=== PATIENT | female | born 1995 | race Caucasian/White ===

== ENCOUNTER 2018-07-15 13:39 | Outpatient (CLI) | payer BC ==
[~2018-07-15] VITALS: Ht 165.1 cm; Wt 59.9 kg
[2018-07-15 16:11] VITALS: BP 114/70
[2018-07-15] MEDS ORDERED: OMEPRAZOLE40 M1 ORAL (16:11)
[2018-07-15] MEDS ORDERED: RANITIDINE HCL150 MG ORAL (16:11)
--- NOTE | 2018-07-15 17:45 | Consultation ---
DATE OF CONSULTATION: 07/15/2018 CHIEF COMPLAINT: Chronic GERD. HISTORY OF PRESENT ILLNESS: This is a 22-year-old female with past medical history of chronic GERD for many years. She has been trying omeprazole twice a day with Zantac with no response. She is having heartburn. She is having actually coffee-grounds emesis. She wakes up in the morning with nausea and sometimes even vomits, never had an endoscopy so was referred to us for endoscopy . PAST MEDICAL HISTORY: 1. GERD. 2. Hyperparathyroidism. 3. Hemorrhoids. PAST SURGICAL HISTORY: None. MEDICATIONS: Zantac and omeprazole. FAMILY HISTORY: No family history of GI malignancies. SOCIAL HISTORY: Drinks only socially. No intravenous drug abuse. No tobacco abuse. No marijuana abuse. ALLERGIES: No known drug allergies. PHYSICAL EXAMINATION: GENERAL: No acute distress. VITAL SIGNS: Temperature 97.8, blood pressure 114/70, pulse , respiratory rate 20. HEENT: Normocephalic and atraumatic. Sclerae anicteric. NECK: Supple. No evidence of lymphadenopathy. CARDIOVASCULAR: Regular rate and rhythm. Plus S1 and S2. No obvious murmur. LUNGS: Clear to auscultation bilaterally. ABDOMEN: Soft and nontender. Positive bowel sounds. No rebound. No guarding. No peritoneal sign. EXTREMITIES: No cyanosis. No clubbing. No edema. ASSESSMENT: This is a 22-year-old female with chronic GERD, not responding to PPI and Zantac twice a day. PLAN: To do an endoscopy, rule out hiatal hernia, rule out esophagitis. Meanwhile, the patient was given a combination of the PPI plus baclofen and we are going to try to get authorization from insurance for the endoscopy. I want to thank Dr. Samuel for this kind referral. Tu Staples M.D. DR: Erin JOB#: [id number] CC: Shadia Samuel M.D.; Fax#: [phone]
== END 2018-07-15 15:39 | disposition home or self-care (01) ==
LOC: PAN 13:39
DX: K21.9 Gastro-esophageal reflux disease without esophagitis (principal); R11.10 Vomiting, unspecified; E21.3 Hyperparathyroidism, unspecified
CPT/HCPCS: 99202

== ENCOUNTER 2018-08-06 10:17 | Day surgery (SDC) | payer BC ==
[~2018-08-06] VITALS: Ht 165.1 cm; Wt 59.0 kg
[2018-08-06] VITALS (9 sets, daily range): BP systolic 107–121; BP diastolic 60–72
[~2018-08-06 10:17] MED LIST: OMEPRAZOLE40 M1 ORAL; RANITIDINE HCL150 MG ORAL
[2018-08-06] MEDS ORDERED: NORGESTIMATE-E1 EAC1 PO (11:13)
[2018-08-06] MEDS ORDERED: BACLOFEN10 MG ORAL (11:13)
[2018-08-06] MEDS ORDERED: LR 1000ml ONE (12:00)
[2018-08-06] MEDS ORDERED: Propofol 200mg/20ml IV ONE (12:00)
[2018-08-06] MEDS ORDERED: Lidocaine 1% MPF 10mg/ml 5ml ONE (12:00)
[2018-08-06] MEDS ORDERED: fentaNYL 100 mcg/2 mL IV ONE (12:02)
--- NOTE | 2018-08-06 12:20 | Pre-Procedure Note/Attestation ---
Pre-Procedure Note/Attestation Complete Prior to Procedure Planned Procedure: not applicable Procedure Narrative: egd Indications for Procedure Pre-Operative Diagnosis: gerd Attestation I attest that I discussed the nature of the procedure; its benefits; risks and complications; and alternatives (and the risks and benefits of such alternatives ), prior to the procedure, with the patient (or the patient's legal correspondence representative). I attest that, if there was a reasonable possibility of needing a blood transfusion, the patient (or the patient's legal correspondence representative) was given the [facility] standardized written summary, pursuant to the [place] Blood Safety Act ([place] Health and Safety Code # 1645, as amended). I attest that I re-evaluated the patient just prior to the surgery and that there has been no change in the patient's H&P, except as documented below: Tu Staples MD August 06, 2018 12:20
--- NOTE | 2018-08-06 12:21 | Short Stay Surgery H&P ---
History of Present Illness History of Present Illness Chief Complaint gerd HPI Deanne Floyd is a 22 year old female who was admitted on for GERD Patient History Allergies: Coded Allergies: No Known Allergies (Unverified , 08/05/18) PAST MEDICAL HISTORY: (1) GERD (gastroesophageal reflux disease) Medication History Scheduled Baclofen* (Baclofen*), 10 MG ORAL BEDTIME, (Reported) Norgestimate-Ethinyl Estradiol (Norgestimate-Ethinyl Estradiol), 1 EACH PO DA, ( Reported) Omeprazole (Omeprazole), 40 MG ORAL DAILY, (Reported) Review of Systems Cardiovascular: Reports: no symptoms Respiratory: Reports: no symptoms Skeletal: Reports: no symptoms Gastrointestinal: Reports: see HPI Genitourinary: Reports: no symptoms Neurologic: Reports: no symptoms Endocrine: Reports: no symptoms Hematologic: Reports: no symptoms Physical Exam Vital Signs Last Vital Signs Date Time Temp Pulse Resp B/P (MAP) Pulse Ox O2 Delivery O2 Flow Rate FiO2 08/06/18 11:09 98.5 52 20 121/72 100 Room Air Labs Laboratory Tests Test 08/06/18 11:35 Human Chorionic Gonadotropin, Qual Negative (NEGATIVE) Skin: normal HENT: normal Heart: normal Lungs: normal Abdomen: normal Extremities: normal Plan Plan of Care egd Attestation Are the patient's medical conditions optimized for surgery? Attestation Response: yes Tu Staples MD August 06, 2018 12:21
--- NOTE | 2018-08-06 12:34 | Endoscopy Procedure Note ---
Endoscopy Procedure Note General Indication for Procedure: gerd Procedures Performed: EGD Operative Findings/Diagnosis: gastritis Specimen: yes Pt Tolerated Procedure Well: Yes Estimated Blood Loss: none Anesthesia Anesthesiologist: mohan Anesthesia: MAC Inserted Devices Implant(s) used?: No GI Core Measures 50 yrs or older w/o bx or poly: Not Applicable 10yrs. F/U recommended: Not Applicable Tu Staples MD August 06, 2018 12:34
[2018-08-06] MEDS ORDERED: Metoclopramide 10mg/2ml Inj IVP PRN (12:45)
--- NOTE | 2018-08-06 12:45 | Anethesia Preoperative Eval ---
Anesthesia Pre-op PMH/ROS General Date of Evaluation: August 06, 2018 Time of Evaluation: 12:10 ASA Score: ASA 2 Mallampati Score Class I : Soft palate, uvula, fauces, pillars visible Class II: Soft palate, uvula, fauces visible Class III: Soft palate, base of uvula visible Class IV: Only hard plate visible Mallampati Classification: Class I Surgeon: Jhaon Diagnosis: GERD Surgical Procedure: EGD diagnostic Anesthesia History: none Family History: no anesthesia problems Allergies: Coded Allergies: No Known Allergies (Unverified , 08/05/18) Medications: see eMAR Patient NPO?: Yes NPO Date: August 06, 2018 NPO Time: 00:00 Past Medical History Cardiovascular: Denies: HTN, CAD, SD, valve dz, arrhythmia, other Pulmonary: Denies: asthma, COPD, ADRIANA, other Gastrointestinal/Genitourinary: Reports: GERD, other - insomnia; Denies: CRI, ESRD Neurologic/Psychiatric: Denies: dementia, CVA, depression/anxiety, TIA, other Endocrine: Denies: DM, hypothyroidism, steroids, other HEENT: Denies: cataract (L), cataract (R), glaucoma, ONONDAGA (L), ONONDAGA (R), other Hematology/Immune: Denies: anemia, DVT, bleeding disorder, other Musculoskeletal/Integumentary: Denies: OA, RA, DJD, DDD, edema, other PMH Narrative: as noted above PSxH Narrative: none Anesthesia Pre-op Phys. Exam Physician Exam Last Vital Signs Date Time Temp Pulse Resp B/P (MAP) Pulse Ox O2 Delivery O2 Flow Rate FiO2 08/06/18 11:09 98.5 52 20 121/72 100 Room Air Constitutional: NAD Neurologic: CN 2-12 intact Cardiovascular: RRR Respiratory: CTA Airway Exam Mallampati Score: Class I MO: full Neck: FROM TMD: 3 FB ROM: full Teeth: intact Dentures: no upper, no lower Anesthesia Pre-op A/P Labs Chemistry Test 08/06/18 11:35 Human Chorionic Gonadotropin, Qual Negative (NEGATIVE) Serum Test Test 08/06/18 11:35 Human Chorionic Gonadotropin, Qual Negative (NEGATIVE) Risk Assessment & Plan Assessment: ASA 2, ok to proceed Plan: MAC Status Change Before Surgery: No Pre-Antibiotics Given Within 1 Hr of Incision: No Iasbela Kathleen [employer] August 06, 2018 12:45
--- NOTE | 2018-08-06 12:47 | Immediate Post-Op Evaluation ---
Immediate Post-Op Evalulation Immediate Post-Op Evalulation Procedure: EGD diagnostic Date of Evaluation: August 06, 2018 Time of Evaluation: 12:37 IV Fluids: LR 300 ml Blood Pressure Systolic: 110 Blood Pressure Diastolic: 63 Pulse Rate: 53 Respiratory Rate: 20 O2 Sat by Pulse Oximetry: 98 Temperature (Fahrenheit): 97.2 Pain Score (1-10): 0 Nausea: No Vomiting: No Complications none Patient Status: awake, reacts, patent Hydration Status: adequate Given Within 1 Hr of Incision: Isabela Valles CRNA August 06, 2018 12:47
--- NOTE | 2018-08-06 13:51 | 48 Hour Post Anesthesia Eval ---
Post Anesthesia Evaluation Procedure: EGD diagnostic Date of Evaluation: August 06, 2018 Time of Evaluation: 13:50 Blood Pressure Systolic: 107 0: 60 Pulse Rate: 45 Respiratory Rate: 11 Temperature (Fahrenheit): 97 O2 Sat by Pulse Oximetry: 98 Airway: patent Nausea: No Vomiting: No Pain Intensity: 0 Cardiopulmonary Status: stable Mental Status/LOC: patient returned to baseline Follow-up Care/Observations: per GI Post-Anesthesia Complications: none Follow-up care needed: N/A Isabela Kathleen CRNA August 06, 2018 13:51
--- NOTE | 2018-08-06 18:30 | Procedure Note ---
DATE OF PROCEDURE: 08/06/2018 SURGEON: Tu Staples M.D. PROCEDURE: Upper endoscopy with biopsy. ANESTHESIA: Per Isabela REAVES. INSTRUMENT: Olympus adult flexible upper endoscope. INDICATION: Chronic GERD. REASON FOR PROCEDURE: The procedure, risks, benefits, and possible consequences, including hemorrhage, aspiration, perforation and infection, and alternative treatments, were explained to the patient/legal guardian by Dr. Tu Staples and the patient/legal guardian understood and accepted these risks. PROCEDURE IN DETAIL: After informed consent was obtained and the patient was adequately sedated, Olympus upper endoscope was advanced from the mouth into the second portion of the duodenum and retroflexion was performed in the stomach. The patient had evidence of gastroesophageal junction at about 35 cm from the incisors. No evidence of any esophagitis. Actually, the muscle of the lower esophageal sphincter was fairly intact. In the stomach, there was diffuse gastritis. Random biopsy from antrum and body was obtained to rule out H. pylori infection. At this time, we slowly retrieved the scope back into the esophagus where we saw multiple inlet patches in the upper esophagus. The patient tolerated the procedure very well without any complication. SUMMARY OF FINDINGS: 1. Multiple inlet patches. 2. Gastritis status post biopsy. RECOMMENDATIONS: 1. Follow up pathology. Treat for Helicobacter pylori if it is positive. 2. Continue on PPI and baclofen. 3. Consider doing repeat esophagogastroduodenoscopy with cauterization of the inlet patches if the patient continues to be symptomatic. I want to thank, Dr. Samuel, for this kind referral. Tu Staples M.D. DR: KITA JOB#: [id number] CC: Shadia Samuel M.D.; Fax#: [phone]
== END 2018-08-06 13:45 | disposition home or self-care (01) ==
LOC: GAS 10:17
DX: K21.9 Gastro-esophageal reflux disease without esophagitis (principal); K29.50 Unspecified chronic gastritis without bleeding; Z79.899 Other long term (current) drug therapy; G47.00 Insomnia, unspecified
CPT/HCPCS: 36415; 43239; 84703; J2405; J2704; J3010; 94003; 94150

== ENCOUNTER 2018-09-08 10:20 | Outpatient (CLI) | payer BC ==
[~2018-09-08 10:20] MED LIST changes: +BACLOFEN10 MG ORAL; +NORGESTIMATE-E1 EAC1 PO
--- NOTE | 2018-09-08 10:37 | General Progress Note ---
Assessment/Plan Problem List: (1) inlet pach (2) GERD (gastroesophageal reflux disease) ICD Codes: K21.9 - Gastro-esophageal reflux disease without esophagitis SNOMED: [id number] Assessment/Plan: ppi baclofen repeat EGD and cautheriZATION IF NO RESPONSE Subjective ROS Limited/Unobtainable: Yes Allergies: Coded Allergies: No Known Allergies (Unverified , 08/05/18) Objective General Appearance: alert EENT: normal ENT inspection Neck: supple Cardiovascular: normal rate Respiratory/Chest: lungs clear Abdomen: normal bowel sounds, non tender, soft Tu Staples MD Sep 08, 2018 10:37
== END 2018-09-08 12:20 | disposition home or self-care (01) ==
LOC: PAN 10:20
DX: K21.9 Gastro-esophageal reflux disease without esophagitis (principal)
CPT/HCPCS: 99212